=== PATIENT | male | born 1950 | race Caucasian/White ===

== ENCOUNTER 2019-04-20 06:19 | Inpatient (IN) ==
--- NOTE | 2019-04-14 17:23 | EKG Report ---
Test Performed on : 04/14/2019 5:19:31 PM Test Reason : PAT Blood Pressure : / mmHG Vent. Rate : 076 BPM Atrial Rate : 076 BPM P-R Int : 166 ms QRS Dur : 100 ms QT Int : 368 ms P-R-T Axes : 060 024 -01 degrees QTc Int : 414 ms Normal sinus rhythm. Normal ECG When compared with ECG of 23-FEB-2018 07:11, No significant change was found Confirmed by Umang DURAN, Moi Bray ([id number]) on 04/16/2019 7:01:11 PM
[2019-04-14 17:42] LABS: URINE SOURCE CLEAN CATCH
[2019-04-14 17:50] LABS: BASO# 0.02 X1000 (0.0-0.2); BASO% 0.3 % (0.0-0.8); EOS# 0.14 X1000 (0.0-0.7); EOS% 1.8 % (0.0-10.0); HEMATOCRIT 41.3 % (42.0-52.0); HEMOGLOBIN 13.4 g/dL (14.0-18.0); LYMPH# 1.96 X1000 (1.2-3.4); LYMPH% 25.6 % (20.5-51.1); MCH 28.7 PG (27-31); MCHC 32.4 g/dL (33-37); MCV 88.4 FL (81-99); MONO# 0.71 X1000 (0.11-0.59); MONO% 9.3 % (1.7-9.3); MPV 9.8 FL (7.4-10.4); NEUT# 4.83 X1000 (1.4-6.5); PLT 170 X1000 (130-400); RBC 4.67 XMIL (4.7-6.1); RDW 13.7 % (11.5-14.5); WBC 7.66 X1000 (4.8-10.8)
[2019-04-14 17:56] LABS: BILIRUBIN URINE NEGATIVE (NEGATIVE); BLOOD URINE NEGATIVE (NEGATIVE); COLOR YELLOW; GLUCOSE URINE 70 mg/dL (NEGATIVE); KETONE URINE NEGATIVE (NEGATIVE); LEUKOCYTES URINE NEGATIVE (NEGATIVE); NITRITE URINE NEGATIVE (NEGATIVE); PH URINE 5.5; PROTEIN URINE 30 mg/dL (NEGATIVE); SP GRAVITY URINE 1.018; TURBIDITY URINE HAZY (CLEAR); UROBILINOGEN URINE NORMAL (NORMAL)
[2019-04-14 17:57] LABS: INR 1.07
[2019-04-14 17:58] LABS: PTT 30.2 Seconds (22.3-41.8)
[2019-04-14 17:59] LABS: HEMOGLOBIN A1C 6.7 % (4.8-6.0)
[2019-04-14 18:02] LABS: CALCIUM 8.9 mg/dL (8.8-10.2); CREATININE 1.7 mg/dL (0.7-1.2); POTASSIUM 4.3 mmol/L (3.5-5.1)
[2019-04-14 18:07] LABS: UR EPITHELIAL CELLS <10 /HPF (<10); URINE BACTERIA NEGATIVE /HPF; URINE RBC <10 /HPF (<10); URINE WBC <10 /HPF (<10)
[2019-04-14 18:25] LABS: URINE CASTS NONE SEEN; URINE CRYSTALS CA OXALATE PRESENT; URINE YEAST NONE SEEN
[2019-04-20] MEDS ORDERED: QUELICIN (DOSE) ONE ×2 (06:27→06:29)
[2019-04-20] MEDS ORDERED: XYLOCAINE-MPF 2% ONE (06:32)
[2019-04-20] MEDS ORDERED: DIPRIVAN 1% 500 MG/50 ML BOTTLE ONE (06:36)
[2019-04-20] MEDS ORDERED: FENTANYL ONE (06:38)
[2019-04-20] MEDS ORDERED: COLACE ONE (06:41)
[2019-04-20] MEDS ORDERED: LYRICA ONE (06:42)
[2019-04-20] MEDS ORDERED: CELEBREX ONE (06:42)
[2019-04-20] MEDS ORDERED: PEPCID ONE (06:42)
[2019-04-20] MEDS ORDERED: KEFZOL 1 GM/D5W 2 GM/100 ML IVPB ONE (06:42)
[2019-04-20] MEDS ORDERED: LR 1,000 ML ONE (06:42)
[2019-04-20] MEDS ORDERED: REGLAN ONE (06:42)
[2019-04-20] MEDS ORDERED: MARCAINE 0.25% PF ONE (07:25)
[2019-04-20] MEDS ORDERED: DURAMORPH ONE (07:25)
[2019-04-20] MEDS ORDERED: VANCOMYCIN ONE (07:25)
[2019-04-20] MEDS ORDERED: TORADOL ONE (07:25)
[2019-04-20] MEDS ORDERED: EXPAREL 1.3% ONE (07:26)
[2019-04-20] MEDS ORDERED: NEOSPORIN G.U. IRRIGANT ONE (07:26)
[2019-04-20] MEDS ORDERED: SODIUM CHLORIDE 0.9% ONE (07:26)
[2019-04-20] MEDS ORDERED: VERSED ONE (08:09)
[2019-04-20] MEDS: CYKLOKAPRON 1,000 MG/NS 2,000 MG/200 ML IVPB ONE ×2 (08:38→09:47)
[2019-04-20 09:17] LABS: URINE SOURCE CATH
[2019-04-20] MEDS ORDERED: DECADRON ONE (09:24)
[2019-04-20] MEDS ORDERED: OFIRMEV 1000 MG/ISOTONIC SOLN 1,000 MG/100 ML BOTTLE ONE (09:24)
[2019-04-20] MEDS ORDERED: ZOFRAN ONE (09:24)
[2019-04-20] MEDS ORDERED: DIPRIVAN 1% ONE (09:29)
[2019-04-20 09:47] LABS: BILIRUBIN URINE NEGATIVE (NEGATIVE); BLOOD URINE NEGATIVE (NEGATIVE); COLOR YELLOW; GLUCOSE URINE NEGATIVE (NEGATIVE); KETONE URINE NEGATIVE (NEGATIVE); LEUKOCYTES URINE NEGATIVE (NEGATIVE); NITRITE URINE NEGATIVE (NEGATIVE); PH URINE 5.5; PROTEIN URINE 30 mg/dL (NEGATIVE); SP GRAVITY URINE 1.017; TURBIDITY URINE CLEAR (CLEAR); UROBILINOGEN URINE NORMAL (NORMAL)
[2019-04-20 09:49] LABS: UR EPITHELIAL CELLS <10 /HPF (<10); URINE BACTERIA NEGATIVE /HPF; URINE RBC <10 /HPF (<10); URINE WBC <10 /HPF (<10)
[2019-04-20] MEDS ORDERED: NS 1,000 ML ONE (10:18)
--- NOTE | 2019-04-20 10:57 | Diag Imaging Result Doc PS360 ---
EXAM: KNEE 1-2 VIEWS-RIGHT 04/20/2019 HISTORY: post op TECHNIQUE: Right knee two views COMMENT: There is a total knee arthroplasty. There is no evidence of acute fracture or other definite abnormality. IMPRESSION: Postsurgical changes. Electronically signed by Nba Schwarz 04/20/2019 10:55 AM
[2019-04-20] MEDS ORDERED: OXY IR PO PRN (11:45)
[2019-04-20] MEDS ORDERED: MORPHINE IV PRN ×3 (11:45)
[2019-04-20] MEDS ORDERED: ZOFRAN IV PRN (11:45)
[2019-04-20] MEDS: NS 1,000 ML IV SCH (12:22)
[2019-04-20] MEDS: ULTRAM PO SCH ×3 (12:22→18:17)
--- NOTE | 2019-04-20 13:57 | OPERATIVE NOTE ---
PROCEDURE DATE: 04/20/2019 PREOPERATIVE DIAGNOSIS: Degenerative joint disease, right knee. POSTOPERATIVE DIAGNOSIS: Degenerative joint disease, right knee. PROCEDURE PERFORMED: Right total knee. SURGEON: Damon Canales MD SLUBBER RUNNER: SYDNEY Hill. MsKenji Woodard was necessary for proper retraction and manipulation of the leg during the case. ANESTHESIA: Spinal. COMPLICATION: None. PROCEDURE IN DETAIL: This 68-year-old male presents for right total knee replacement. Risks, benefits, and no guarantees were discussed and patient is willing to proceed. He was taken to the operating room with satisfactory spinal anesthesia. The right leg was prepped and draped in usual sterile fashion. A time-out was taken to confirm operative site, procedure, and patient. The leg was wrapped with an Esmarch and tourniquet inflated to 350 mmHg. A midline incision was made over the front of the knee followed by a quad tendon sparing arthrotomy. The patella was everted and resurfaced with freehand technique and subluxed laterally. With the knee flexed an intramedullary hole was made in the distal femur and the distal femoral cutting block secured in 5 degrees of valgus. Distal femoral resection was made and the femur sized to a size 8 DePuy Attune femoral component. The 4 in 1 block was secured and the anterior, posterior, and chamfer cuts sequentially made. Care was taken to preserve the PCL as well as the medial and lateral collateral ligaments. After preparation of the femur, any remaining osteophytes were debrided from the femur. A PCL retractor was placed behind the tibia to protect the neurovascular bundle and PCL. Tibial cutting block was secured with extramedullary alignment and the tibial resection made. Flexion and extension gaps were roughly equal with a 14 mm spacer. The tibia was sized to a size 8 tibial tray. A trial reduction was performed with good range of motion and stability. The patella was sized to a 41 medialized dome patella. Through the trials, lug holes were placed for the patella and femoral implant. The trial components removed. The bony surfaces thoroughly irrigated with pulsatile lavage and dried. Cement with a gram of vancomycin was utilized to cement a DePuy size 8 tibial platform rotating tray, a size 8 cruciate retaining standard width right femoral component and a 41 medialized dome patella. While the cement cured, excess cement was removed with a Mode elevator. The joint capsule was then injected with Exparel and a Hemovac drain placed. After curing the cement, a 14 mm cruciate retaining size 8 polyethylene bearing was inserted into the tibial tray and the knee reduced. Final range of motion was 0 to 120 degrees with midline patellar tracking. The arthrotomy was copiously irrigated with irrigant and closed over the drain with #1 Vicryl in the arthrotomy, 2-0 Vicryl in the subcutaneous, and a perennial dressing over this. The tourniquet was released with good return of capillary blood flow. The patient was recovered from anesthesia and transferred to the recovery room in stable condition. No intraoperative complications were noted. Instrument count and sponge count was correct at the time of closure. cc: Damon Canales MD
[2019-04-20] MEDS: KEFZOL 2 GM/D5W 2 GM/50 ML IVPB IV SCH (16:15)
[2019-04-20] MEDS: HUMULIN 70/30 SUBQ SCH (16:18)
[2019-04-20] MEDS ORDERED: INSULIN PEN NEEDLES ONE (16:18)
[2019-04-20] MEDS: TYLENOL PO SCH ×2 (16:35→21:54)
--- NOTE | 2019-04-20 20:03 | ORTHOPAEDICS PROGRESS NOTE ---
DATE: 04/20/2019 Mr. Braswell is seen status post total knee replacement. At the present time, he is afebrile with stable vital signs. His incision and bandage are clean and dry. He appears to be motor and sensory intact. Postop x-rays look good. We will plan on discharging him home tomorrow after he mobilizes. He is stable at the current time. cc: Damon Canales MD
[2019-04-20] MEDS: OXY IR PO PRN (20:45)
[2019-04-20] MEDS: CELEBREX PO SCH (20:47)
[2019-04-20] MEDS: COLACE PO SCH (20:47)
[2019-04-20] MEDS: CARDIZEM CD PO SCH (20:48)
[2019-04-20] MEDS: PERIDEX MT SCH (20:48)
[2019-04-20] MEDS: AMARYL PO SCH (21:54)
[2019-04-21] MEDS: KEFZOL 2 GM/D5W 2 GM/50 ML IVPB IV SCH (00:01)
[2019-04-21] MEDS: ULTRAM PO SCH ×2 (00:02→05:20)
[2019-04-21] MEDS: NS 1,000 ML IV SCH ×2 (00:02→06:31)
[2019-04-21] MEDS: TYLENOL PO SCH ×2 (05:19→08:10)
[2019-04-21] MEDS: OXY IR PO PRN ×2 (07:19→10:59)
[2019-04-21 07:22] LABS: HEMATOCRIT 33.6 % (42.0-52.0); HEMOGLOBIN 11.1 g/dL (14.0-18.0)
[2019-04-21 07:44] LABS: CALCIUM 8.7 mg/dL (8.8-10.2); CREATININE 1.4 mg/dL (0.7-1.2); POTASSIUM 4.9 mmol/L (3.5-5.1)
[2019-04-21] MEDS: HUMULIN 70/30 SUBQ SCH (07:57)
[2019-04-21] MEDS: AMARYL PO SCH (08:02)
[2019-04-21] MEDS: CELEBREX PO SCH (08:03)
[2019-04-21] MEDS: CARDIZEM CD PO SCH (08:03)
[2019-04-21] MEDS: PERIDEX MT SCH (08:05)
[2019-04-21] MEDS: COLACE PO SCH (08:07)
[2019-04-21 08:17] VITALS: BP 156/86
[2019-04-21] MEDS ORDERED: JANUVIA PO SCH (09:00)
[2019-04-21] MEDS ORDERED: ZOCOR PO SCH (09:00)
[2019-04-21] MEDS ORDERED: PEPCID PO SCH (09:00)
[2019-04-21] MEDS ORDERED: COZAAR PO SCH (09:00)
[2019-04-21] MEDS ORDERED: MIRALAX PO SCH (09:00)
[2019-04-21] MEDS ORDERED: PRILOSEC PO SCH (09:00)
[2019-04-21] MEDS ORDERED: ASPIRIN PO SCH (09:00)
--- NOTE | 2019-04-21 12:50 | DISCHARGE SUMMARY ---
ADMISSION DATE: 04/20/2019 DISCHARGE DATE: 04/21/2019 HOSPITAL COURSE: Mr. Braswell is seen status post total knee replacement. He has already been mobilized earlier. We will discontinue his drain. He is afebrile with stable vital signs. The bandage is clean and dry. There are no postop complications. PLAN/MEDICATIONS: 1. We will plan on discharging him on his usual home medicines including [place] 10 as needed for pain, Bactrim for antibacterial prophylaxis for a week, and aspirin 325 a day for DVT prophylaxis. 2. I have arranged home therapy. 3. We will follow up with him in 2 weeks or sooner if needed. cc: Damon Canales MD
--- NOTE | 2019-04-21 14:45 | ORTHOPAEDICS PROGRESS NOTE ---
DATE: 04/21/2019 SUBJECTIVE: The patient is status post day 1 of a right total knee arthroplasty. He is resting comfortably in bed at this time. He has no complaints at this time. OBJECTIVE: Mr. Braswell incision to his right knee is clean, dry, and intact. He has a Prineo dressing in place with no drainage noted. His drain has been removed, and his dressing over that site is clean, dry, and intact as well. He has active dorsiflexion, plantar flexion of his right foot. He has full sensation intact. Vital Signs this morning reveal blood pressure of 156/86, and a temperature of 97.9 degrees. His hemoglobin and hematocrit this morning was 11 and 33. ASSESSMENT: Status post day 1 right total knee arthroplasty. PLAN: Mr. Braswell will be going home today, and will be getting 2 weeks of home health for physical therapy. He will then be doing his physical therapy at [facility] re[facility]. He will be getting aspirin 325 mg to take daily for DVT prophylaxis, and he will also be discharged home on [place] 10 to take as needed for pain. He is also being discharged on Bactrim DS to take 1 p.o. b.i.d. for 14 days. Mr. Braswell will follow up on 05/03. He denies any questions at this time. He is stable for discharge home after physical therapy this morning. Dictated by SYDNEY Chauhan for Damon Canales MD cc: Damon Canales MD
== END 2019-04-21 11:39 | disposition home health service (06) | DRG 470 ==
LOC: 4N 06:19 → OR 06:19 → OBSVTOIN 09:08
PROVIDERS: ADMIT Orthopaedic Surgery Adult Reconstructive Orthopaedic Surgery; ATTEND Orthopaedic Surgery Adult Reconstructive Orthopaedic Surgery